=== PATIENT | male | born 1960 | race Caucasian/White ===

== ENCOUNTER 2017-02-12 05:34 | Outpatient (CLI) | payer BC ==
[~2017-02-12] VITALS: Ht 182.9 cm; Wt 102.1 kg
[~2017-02-12 05:34] MED LIST: AMOX-355 PO; AMOX500C2 PO; ASP81TEC PO; DEPO-TESTOSTERONE; DEXL60CA5 PO; HYDR-3714 PO; LISI10TA PO; LORA1TAB PO; LOSA25TA5 PO; LVF500T PO; OMEP20CA12 PO; ONDN4T PO; OXYC-471 PO; PANT40TA2 PO; PRD20T PO; PRED10TA PO; SERT100T8 PO; TEST200V3 IM; TMSL.4C PO; TRAM50TA2 PO; TRM50T PO
[2017-02-12] MEDS ORDERED: TAMS0.4C2 PO (12:43)
[2017-02-12] MEDS ORDERED: SERT100T8 PO (12:43)
[2017-02-12] MEDS ORDERED: LOSA100T28 PO (12:43)
[2017-02-12] MEDS ORDERED: METO10TA3 PO (12:43)
[2017-02-12] MEDS ORDERED: PANT40TA3 PO (12:43)
== END 2017-02-12 16:39 ==
LOC: PREOP 05:34
PROVIDERS: ATTEND Pain Medicine Pain Medicine
DX: Z01.818 Encounter for other preprocedural examination (principal); M51.36 Other intervertebral disc degeneration, lumbar region; G89.4 Chronic pain syndrome

== ENCOUNTER 2017-02-19 08:20 | Day surgery (SDC) | payer BC ==
[~2017-02-19] VITALS: Ht 182.9 cm; Wt 102.1 kg
[~2017-02-19 08:20] MED LIST changes: +LOSA100T28 PO; +METO10TA3 PO; +PANT40TA3 PO; +TAMS0.4C2 PO
[2017-02-19] MEDS ORDERED: LACTATED RINGERS 1,000 ML IV PRN (08:44)
[2017-02-19] MEDS ORDERED: LACTATED RINGERS 1,000 ML IV ONE (09:00)
[2017-02-19] MEDS ORDERED: ceFAZolin 2 GM/NS 50 ML IV ONE (09:00)
[2017-02-19] MEDS ORDERED: proPOfol 200 MG/20 ML (DIPRIVAN) VIAL IV ONE (09:00)
[2017-02-19] MEDS ORDERED: MIDAZOLAM 2 MG/2 ML (VERSED) VIAL ONE (09:00)
[2017-02-19] MEDS ORDERED: LIDOCAINE 1% INJ 20 ML (XYLOCAINE) VIAL ONE (09:04)
[2017-02-19 09:10] VITALS: BP 136/89
--- NOTE | 2017-02-19 09:11 | Progress Note-Pre Operative ---
Pre-Operative Progress Note H&P Reviewed The H&P was reviewed, patient examined and no changes noted. Date H&P Reviewed: Feb 19, 2017 Time H&P Reviewed: 09:11 Pre-Operative Diagnosis: chronic pain syndrome, lumbago, degenerative disc disease lumbar AGA RM MD Feb 19, 2017 9:11 am
[2017-02-19] MEDS ORDERED: fentaNYL INJECTION 100 MCG/2 ML AMP ONE (09:39)
--- NOTE | 2017-02-19 10:41 | Discharge Inst-Simple/Standard ---
Discharge Inst-Standard Patient Instructions/Follow Up Plan of Care/Instructions/FU: Call clinic for any fevers, chills or bleeding/drainage from surgical site. Do not remove the dressings. No showers or bathing for 7 days. Turn off the spinal cord stimulator when driving. Follow up in clinic on 02/23/17 at 2:30 pm Call the spinal cord stimulator sales representative livestock or pain clinic for any questions or concerns. Activity as Tolerated: Yes Discharge Diet: No Restrictions AGA RM MD Feb 19, 2017 10:41 am
--- NOTE | 2017-02-19 10:44 | Operative Report ---
Operative Report Date of Procedure/Surgery Feb 19, 2017 Surgeon (s) AGA RM MD Podiatric Assistant (s): none Post-Operative Diagnosis chronic pain syndrome, lumbago, degenerative disc disease lumbar Procedure Performed AP Film of Thoracolumbar Spine w/ fluoroscopy guidance and interpretation Placement of specialized epidural needle to the L1-L2 inter space bilaterally Placement of linear lead with dual 8 electrodes to the T8-T9 area Intra-operative complex programming of lead taking 30 minutes. Anchoring the spinal cord stimulator lead to the skin Complex programming in recovery taking 30 minutes. Description of Procedure Anesthesia Type: MAC Estimated blood loss (mL): <5 ml Specimen(s) collected/removed none Description of the Procedure The patient is an established patient with the above known diagnosis. The patient understands the reason for the procedure along with the risks, benefits and alternatives available. The patient has had the opportunity to ask questions prior to the procedure, and the patient has given written, informed, consent to proceed with the procedure. Medical Necessity: This patient has chronic pain that has failed to respond to conservative measures as outlined in the original history and physical exam. Patient's symptoms include pain in the lower back and legs bilaterally. The goals of treatment are to 1) achieve optimal pain control, recognizing that a pain-free state may not be achievable; 2) minimize adverse outcomes; 3) enhance functional abilities, and physical and psychological well-being; and 4) enhance the quality of life for patients with chronic pain. Findings of the Procedure procedure blood pressure and pulse were stable and recorded in patients clinic chart. A formal time out was performed. Ancef 2 gm IV was given. The patient was placed in the prone position on operating room table. The patient was attached to a vital sign monitor, continuously monitoring saturation through pulse oximeter, pulse rate, and routine checks on the blood pressure as recorded in the anesthesia record. Moderate level sedation was then achieved by anesthesia as detailed in anesthesia record. A large portion of the dorsal cavity was scrubbed with a micro-antibacterial surgical solution. The patient was draped in typical sterile fashion. After confirmation of vertebral count through thorocolumbar films, the C-arm was used to help define the angle and access point for the epidural needle. Prior to needle placement, and after location of the access point, lidocaine 1% was infiltrated into the skin and deeper tissue area for localization prior to specialized epidural needle placement. After the lidocaine had taken effect, a Touhy needle size 14-guage was introduced and advanced at the level of L1-2 on the right and left side. Once the loss of resistance was positive using a glass syringe, an 8 electrode linear lead was channeled through the epidural needle and guided carefully to the T8-T9 region. The same steps were followed to place an 8 electrode lead midline to the left of the first lead. This placement gave appropriate stimulation. Various program settings were worked through within the operating room, to ensure appropriate coverage with the stimulation. Minor adjustments were made as needed to develop excellent coverage. There was no evidence of paresthesia, heme or CSF. Once the coverage was optimal, the guide needle was removed from the insertion site. The leads then were anchored using the tapered anchor 2-0 silk. Sterile dressing applied using tegaderm, bacitracin ointment and gauze. The patient was then taken from the operating room via stretcher and placed in a recovery room. Once in the recovery room, the fine tune adjustments were made to the stimulation pattern. This additional programming was needed to give the patient optimal coverage during the trial. Post operatively the patient was monitored until stable. Following the procedure the patient's vital signs were stable. fluoro time are recorded in the patient chart. Allergies and Home Medications Allergies Coded Allergies: orphenadrine (Unverified Allergy, Unknown, 11/12/14) Home Medications Lorazepam 1 Mg Tablet, 1 MG PO DAILY, (Reported) Losartan Potassium 100 Mg Tablet, 100 MG PO DAILY, (Reported) Metoclopramide HCl 10 Mg Tablet, 10 MG PO DAILY, (Reported) Pantoprazole Sodium 40 Mg Tablet.dr, 40 MG PO DAILY, (Reported) Sertraline HCl 100 Mg Tablet, 100 MG PO HS, (Reported) Tamsulosin HCl 0.4 Mg Cap.er.24h, 0.4 MG PO DAILY, (Reported) Tramadol Hcl 50 Mg Tablet, 50 MG PO QID PRN for PAIN, (Reported) AGA RM MD Feb 19, 2017 10:44
[2017-02-19] MEDS ORDERED: ONDANSETRON 4 MG/2 ML (SDV) Z0FRAN IVP PRN (10:45)
[2017-02-19] MEDS ORDERED: morphine INJ 10 MG/ML 1ML (SYR OR VIAL) IVP PRN (10:45)
[2017-02-19 11:00] VITALS: BP 109/77
[2017-02-19 11:30] VITALS: BP 132/83
--- NOTE | 2017-02-19 11:45 | Diagnostic Imaging Report ---
Intraoperative view of the lower chest. Fluoroscopic time provided to the OR is 3 minutes 2 seconds. INDICATION: Nerve stimulator placement. IMPRESSION: Provided images demonstrate two epidural leads projecting over the lower thoracic spine. Dictated by: Dictated on workstation # [id number]
[2017-02-19 11:50] VITALS: BP 132/83
[2017-02-19] MEDS ORDERED: BACITRACIN OINTMENT 28 GM TUBE TOP SCH (21:00)
--- OUTSIDE RECORDS SUMMARY | 2017-03-14 07:52 | XMS REPORT | Continuity of Care Document ---
Author Author [facility] Organization [facility] Address Unknown Phone Unavailable Allergies Active Description Code Type Severity Reaction Onset Reported/Identified Relationship to Patient Clinical Status Yes No Known Drug Allergies [id number] Drug Allergy Unknown N/ A 02/15/2012 Yes orphenadrine [id number] Drug Allergy Unknown N/A 11/12/2014 Medications Problems Date Dx Coded Attending Type Code Diagnosis Diagnosed By 02/17/2012 Ot 401.9 HYPERTENSION NOS 02/17/2012 Ot 530.81 ESOPHAGEAL REFLUX 02/17/2012 Ot 786.59 CHEST PAIN NEC 10/05/2014 LORY RUIZ DO Ot 788.1 10/05/2014 LORY RUIZ DO E Ot 789.00 10/12/2014 LORY RUIZ DO E Ot 788.1 10/12/2014 LORY RUIZ DO E Ot 789.00 10/26/2014 LORY RUIZ DO Ot 473.9 11/16/2014 BRIGETTE FALCON MD Ot 473.0 CHR MAXILLARY SINUSITIS 11/16/2014 BRIGETTE FALCON MD Ot 473.2 CHR ETHMOIDAL SINUSITIS 11/16/2014 BRIGETTE FALCON MD Ot 478.0 HYPERTRPH NASAL TURBINAT 11/16/2014 BRIGETTE FALCON MD Ot 478.19 OTHER DISEASE OF NASAL CAVITY AND SINUSE 11/29/2014 BRIGETTE FALCON MD Ot 473.9 11/29/2014 BRIGETTE FALCON MD Ot 478.19 11/29/2014 BRIGETTE FALCON MD Ot V72.63 11/29/2014 BRIGETTE FALCON MD Ot V72.81 11/29/2014 BRIGETTE FALCON MD Ot V74.8 07/12/2015 LORY RIUZ DO Ot 788.1 07/12/2015 LORY RUIZ DO E Ot 789.00 07/12/2015 LORY RUIZ DO Ot 473.9 07/12/2015 BRIGETTE FALCON MD Ot 473.9 07/12/2015 TERRIE ELLER, BRIGETTE Krause Ot 478.19 07/12/2015 TERRIE ELLER, BRIGETTE Krause Ot V72.63 07/12/2015 TERRIE ELLER, BRIGETTE Krause Ot V72.81 07/12/2015 TERRIE ELLER, BRIGETTE Krause Ot V74.8 07/12/2015 WENCESLAO YEH MD Ot 455.0 INT HEMORRHOID W/O COMPL 07/12/2015 WENCESLAO YEH MD Ot 455.3 EXT HEMORRHOID W/O COMPL 07/12/2015 WENCESLAO YEH MD Ot 530.11 REFLUX ESOPHAGITIS 07/12/2015 WENCESLAO YEH MD Ot 535.50 UNSP GASTRITIS GASTRODUODENITIS W/O ME 07/12/2015 WENCESLAO YEH MD Ot 562.10 DIVERTICULOSIS COLON (W/O MENT OF HEMORR 07/12/2015 WENCESLAO YEH MD Ot V12.72 PERSONAL HISTORY OF COLONIC POLYPS 07/12/2015 WENCESLAO YEH MD Ot V76.51 SCREEN MAL NEOP-COLON 11/24/2015 JUSTIN WEINBERG APRN Ot H66.91 OTITIS MEDIA, UNSPECIFIED, RIGHT EAR 11/24/2015 JUSTIN WEINBERG ACID CORRECTION HAND Ot S22.31XA FRACTURE OF ONE RIB, RIGHT SIDE, INIT FO 11/24/2015 JUSTIN WEINBERG APRN Ot W03.XXXA OTH FALL SAME LEV DUE TO COLLISION W ANO 11/24/2015 JUSTIN WEINBERG APRN Ot Y92.410 [facility] [address] 11/24/2015 JUSTIN WEINBERG APRN Ot Y99.0 CIVILIAN ACTIVITY DONE FOR INCOME OR PAY 11/24/2015 LORY RUIZ DO Ot 788.1 11/24/2015 LORY RUIZ DO Ot 789.00 11/24/2015 LORY RUIZ DO Ot 473.9 11/24/2015 TERRIE ELLER, BRIGETTE Krause Ot 473.9 11/24/2015 TERRIE ELLER, BRIGETTE Krause Ot 478.19 11/24/2015 TERRIE ELLER, BRIGETTE Krause Ot V72.63 11/24/2015 TERRIE ELLER, BRIGETTE Krause Ot V72.81 11/24/2015 TERRIE ELLER, BRIGETTE Krause Ot V74.8 11/24/2015 KIDO MD, TAKAAKI Ot 789.00 11/27/2015 LORY RUIZ DO Ot 788.1 11/27/2015 LORY RUIZ DO Ot 789.00 11/27/2015 LORY RUIZ DO E Ot 473.9 11/27/2015 TERRIE ELLER, BRIGETTE Krause Ot 473.9 11/27/2015 TERRIE ELLER, BRIGETTE Krause Ot 478.19 11/27/2015 BRIGETTE FALCON MD Ot V72.63 11/27/2015 BRIGETTE FALCON MD Ot V72.81 11/27/2015 BRIGETTE FALCON MD Ot V74.8 11/27/2015 RUBA ELLER, WENCESLAO Ot 789.00 03/27/2016 LORY RUIZ DO Ot 788.1 DYSURIA 03/27/2016 LORY RUIZ DO Ot 789.00 ABDOMINAL PAIN, UNSPECIFIED SITE 03/27/2016 LORY RUIZ DO Ot 473.9 CHRONIC SINUSITIS NOS 03/27/2016 BRIGETTE FALCON MD Ot 473.9 CHRONIC SINUSITIS NOS 03/27/2016 BRIGETTE FALCON MD Ot 478.19 OTHER DISEASE OF NASAL CAVITY AND SINUSE 03/27/2016 BRIGETTE FALCON MD Ot V72.63 PRE-PROCEDURAL LABORATORY EXAMINATION 03/27/2016 BRIGETTE FALCON MD Ot V72.81 ARSA-VFJ-UTCMGCARX CARDIOVASCULAR 03/27/2016 BRIGETTE FALCON MD Ot V74.8 SCREEN-BACTERIAL DIS NEC 03/27/2016 RUBA ELLER, ORINAAKI Ot 789.00 ABDOMINAL PAIN, UNSPECIFIED SITE 03/30/2016 LORY RUIZ DO Ot M51.17 INTVRT DISC DISORDERS W RADICULOPATHY, L 04/13/2016 JUSTIN WEINBERG APRN Ot K57.30 DVRTCLOS OF LG INT W/O PERFORATION OR AB 04/13/2016 JUSTIN WEINBERG APRN Ot R10.13 EPIGASTRIC PAIN 04/13/2016 JUSTIN WEINBERG APRN Ot R11.0 NAUSEA 04/13/2016 JUSTIN WEINBERG APRN Ot Z87.891 PERSONAL HISTORY OF NICOTINE DEPENDENCE 05/21/2016 AGA RM MD Ot M54.5 LOW BACK PAIN 05/25/2016 AGA RM MD Ot M54.5 LOW BACK PAIN 06/03/2016 AGA RM MD Ot M47.816 SPONDYLOSIS W/O MYELOPATHY OR RADICULOPA 06/03/2016 AGA RM MD Ot M51.16 INTERVERTEBRAL DISC DISORDERS W RADICULO 06/03/2016 AGA RM MD Ot 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 06/05/2016 AGA RM MD Ot M47.816 SPONDYLOSIS W/O MYELOPATHY OR RADICULOPA 06/05/2016 AGA RM MD Ot M51.16 INTERVERTEBRAL DISC DISORDERS W RADICULO 06/05/2016 AGA RM MD Ot M53.3 SACROCOCCYGEAL DISORDERS, NOT ELSEWHERE 06/29/2016 AGA RM MD Ot M47.816 SPONDYLOSIS W/O MYELOPATHY OR RADICULOPA 06/29/2016 AGA RM MD Ot M51.16 INTERVERTEBRAL DISC DISORDERS W RADICULO 06/29/2016 AGA RM MD Ot M53.3 SACROCOCCYGEAL DISORDERS, NOT ELSEWHERE 06/29/2016 AGA RM MD Ot M54.5 LOW BACK PAIN 08/14/2016 AGA RM MD Ot M47.816 SPONDYLOSIS W/O MYELOPATHY OR RADICULOPA 08/14/2016 AGA RM MD Ot M53.3 SACROCOCCYGEAL DISORDERS, NOT ELSEWHERE 08/14/2016 AGA RM MD Ot Z79.899 OTHER SENIOR CARE (CURRENT) DRUG THERAPY 09/01/2016 AGA RM MD Ot M47.816 SPONDYLOSIS W/O MYELOPATHY OR RADICULOPA 09/01/2016 AGA RM MD Ot M53.3 SACROCOCCYGEAL DISORDERS, NOT ELSEWHERE 09/01/2016 AGA RM MD Ot 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 02/12/2017 AGA RM MD Ot G89.4 CHRONIC PAIN SYNDROME 02/12/2017 AGA RM MD, Ot M51.36 OTHER INTERVERTEBRAL DISC DEGENERATION, 02/12/2017 AGA RM MD, Ot Z01.818 ENCOUNTER FOR OTHER PREPROCEDURAL EXAMIN 02/15/2017 AGA RM MD, Ot G89.4 CHRONIC PAIN SYNDROME 02/15/2017 AGA RM MD, Ot M51.36 OTHER INTERVERTEBRAL DISC DEGENERATION, 02/15/2017 AGA RM MD Ot Z01.818 ENCOUNTER FOR OTHER PREPROCEDURAL EXAMIN 02/19/2017 AGA RM MD Ot G89.4 CHRONIC PAIN SYNDROME 02/19/2017 AGA RM MD Ot M51.36 OTHER INTERVERTEBRAL DISC DEGENERATION, Procedures Code Description Performed By Performed On 37.22 02/16/2012 88.42 02/16/2012 88.53 02/16/2012 88.56 02/16/2012 Results Test Result Range Methicillin resistant Staphylococcus aureus (MRSA) screening culture - 09:15 MRSA SCREEN RESULT MRSA ISOLATED NRG Encounters ACCT No. Visit Date/Time Discharge Status Pt. Type Provider Facility Loc./Unit Complaint [id number] 02/19/2017 08:20:00 2016 11:50:00 DIS Outpatient AGA RM MD [facility] SDC CPS AND DDD LUMBAR [id number] 02/12/2017 05:34:00 2016 16:39:00 DIS Outpatient AGA RM MD [facility] PREOP CPS AND DDD LUMBAR [id number] 08/14/2016 06:51:00 2015 07:45:00 DIS Outpatient AGA RM MD [facility] CARD SPONDYLOSIS [id number] 05/01/2016 09:36:00 2015 10:55:00 DIS Outpatient AGA RM MD [facility] CARD [id number] 04/12/2016 12:41:00 2015 14:54:00 DIS Outpatient JUSTIN WEINBERG APRN [facility] ER [id number] 11/24/2015 12:58:00 2015 15:50:00 DIS Emergency JUSTIN WEINBERG APRN [facility] ER [id number] 07/12/2015 07:52:00 2014 23:59:59 CLS Outpatient WENCESLAO YEH MD [facility] RAD [id number] 07/12/2015 09:15:00 2014 13:00:00 DIS Outpatient WENCESLAO YEH MD [facility] [id number] 07/10/2015 05:41:00 2014 23:59:59 CLS Outpatient WENCESLAO YEH MD [facility] PREOP [id number] 11/16/2014 08:50:00 2013 15:50:00 DIS Outpatient BRIGETTE FALCON MD [facility] [id number] 11/12/2014 10:14:00 2013 23:59:59 CLS Outpatient BRIGETTE FALCON MD [facility] PREOP [id number] 10/12/2014 11:43:00 2013 23:59:59 CLS Outpatient LORY RUIZ DO [facility] RAD [id number] 09/17/2014 06:40:00 2013 23:59:59 CLS Outpatient LORY RUIZ DO [facility] RAD [id number] 06/05/2016 09:16:00 ACT Outpatient AGA RM MD [facility] CARD DISC DISORDER [id number] 05/20/2016 17:31:00 ACT Outpatient AGA RM MD [facility] RAD [id number] 03/27/2016 13:27:00 ACT Outpatient LORY RUIZ DO [facility] RAD [id number] 10/31/2015 17:20:00 ACT Outpatient MAL NOLEN APRN [facility] QUICK [id number] 02/16/2012 00:01:00 Document Registration
== END 2017-02-19 11:50 | disposition home or self-care (01) ==
LOC: DELPENDDIS → SDC 08:20
PROVIDERS: ATTEND Pain Medicine Pain Medicine
DX: M51.36 Other intervertebral disc degeneration, lumbar region (principal); G89.4 Chronic pain syndrome
CPT/HCPCS: 87081